=== PATIENT | female | born 1940 | race Caucasian/White ===

== ENCOUNTER 2018-02-10 09:26 | Emergency (ER) | payer OTHER, MEDICARE ==
[2018-02-10 09:38] VITALS: PULSE 68; TEMP 98.6; BMI 27.8
--- NOTE | 2018-02-10 09:57 | PDOC ---
History of Present Illness - General Chief Complaint: Injury Stated Complaint: FALL INJURY Time Seen by Provider: 02/10/18 09:52 History Source: Patient Exam Limitations: No Limitations (R hand pain, chin abrasion s/p fall, hit face , no head or loc ) - History of Present Illness Associated Symptoms: denies: chest pain, fever/chills, nausea/vomiting, shortness of breath, syncope Past History - Travel Traveled outside of the country in the last 30 days: No Close contact w/someone who was outside of country & ill: No - Past Medical History Allergies/Adverse Reactions: Allergies Allergy/AdvReac Type Severity Reaction Status Date / Time No Known Allergies Allergy Verified 02/10/18 09:35 COPD: No - Suicide/Smoking/Psychosocial Hx Smoking History: Former smoker Have you smoked in the past 12 months: No Information on smoking cessation initiated: No Hx Alcohol Use: No Drug/Substance Use Hx: No Review of Systems - Review of Systems Is the patient limited B[place]ian proficient: No Constitutional: No: Chills, Fever Respiratory: No: Orthopnea, Shortness of Breath Cardiac (ROS): No: Chest Pain, Irregular Heart Rate Musculoskeletal: Yes: Other (R hand pain). No: Back Pain, Gout, Joint Pain, Joint Swelling, Muscle Pain, Muscle Weakness, Neck Pain Integumentary: Yes: Bruising Neurological: No: Headache, Numbness, Paresthesia, Tremors, Weakness *Physical Exam - Vital Signs Last Vital Signs Temp Pulse Resp BP Pulse Ox 98.6 F 68 16 175/72 99 02/10/18 09:35 02/10/18 09:35 02/10/18 09:35 02/10/18 09:35 02/10/18 09:35 - Physical Exam General Appearance: Yes: Nourished HEENT: positive: EOMI, LATOYA Neck: positive: Tender, Supple Respiratory/Chest: positive: Lungs Clear, Normal Breath Sounds Cardiovascular: positive: Regular Rhythm, Regular Rate, S1, S2 Extremity: positive: Normal Capillary Refill, Normal Inspection, Normal Range of Motion, Other (R hand:tenderness in palmar aspect hand, FROM, no snuff box tenderness or wrist pain. no obvious deformity noted) Neurologic: positive: mohs surgeon/general dermatologist II-XII NML intact, Fully Oriented, Alert Medical Decision Making - Medical Decision Making 02/10/18 10:38 77 years old female who tripped and fell in the emergency room upon entering ER waiting room, she was bringing her to be evaluated. Sustained chin abrasion and c/o R hand pain. She denies LOC or head trauma, fall was witnessed by ER staff. and complain of right hand pain. Exam consistner of ABRASION IN THE CHIN NO GUM TENDERNESS OR LOOSE TEETH no hand deformity wet read of xray--DJD changes, no acute fx, hand siddharth wrapped chin abrasion cleaned and bacitrian applied 02/10/18 17:38 *DC/Admit/Observation/Transfer Diagnosis at time of Disposition: Hand pain, right - Discharge Dispostion Disposition: HOME Condition at time of disposition: Good Decision to Admit order: No - Referrals Referrals: Bhumika Burton MD [Primary Care Provider] - - Patient Instructions Printed Discharge Instructions: DI for Hand Pain Additional Instructions: I discussed the physical exam findings, ancillary test results and final diagnoses with the patient. I answered all of the patient's questions. The patient was satisfied with the care received and felt comfortable with the discharge plan and treatment plan. The patient will call their primary care physician within 24 hours to arrange follow-up and will return to the Emergency Department with any new, persistant or worsening symptoms. - Post Discharge Activity
[2018-02-10] MEDS ORDERED: ACETAMINOPHEN 325 MG TABLET (FP) ONE (10:36)
[2018-02-10 10:40] VITALS: BP 137/72
[2018-02-10] MEDS ORDERED: ACETAMINOPHEN 325 MG TABLET (FP) PO ONE (10:42)
== END 2018-02-10 12:06 | disposition home or self-care (01) ==
LOC: JERFT 09:26
DX: S00.81XA Abrasion of other part of head, initial encounter (principal); M79.641 Pain in right hand; W18.39XA Other fall on same level, initial encounter; Y93.89 Activity, other specified; Y92.238 Other place in hospital as the place of occurrence of the external cause; Y99.8 Other external cause status
CPT/HCPCS: 73130-TC-RT-FY; 99281-25